=== PATIENT | male | born 1940 | race Caucasian/White ===

== ENCOUNTER 2019-06-07 04:54 | Inpatient (IN) | payer BC, OTHER ==
[~2019-06-07] VITALS: Ht 175.3 cm; Wt 81.6 kg
--- NOTE | 2019-06-07 04:54 | NUR ---
PT CED ALS. TAKEN TO BED 6
--- NOTE | 2019-06-07 04:56 | NUR ---
Dr. Weaver examining patient.
[2019-06-07 05:00] VITALS: BP 94/52
[2019-06-07] MEDS ORDERED: NACL 0.9% 1,000 ML IV SCH ×2 (05:02→07:44)
[2019-06-07] MEDS ORDERED: ONDANSETRON 4 MG/2 ML VIAL IVP ONE (05:05)
[2019-06-07] MEDS ORDERED: MORPHINE SULFATE 2 MG/ML SYR IVP ONE (05:05)
[2019-06-07] MEDS ORDERED: DILTIAZEM 25 MG/5 ML VIAL IVP ONE ×2 (05:05→06:55)
[2019-06-07 05:28] LABS: BASOPHILS % (AUTO) 0.1 % (0.0-2.0); EOSINOPHILS # (AUTO) 0.1 K/uL (0-0.4); EOSINOPHILS % (AUTO) 0.5 % (0.0-4.0); HEMATOCRIT 42.9 % (36-52); HEMOGLOBIN 13.8 g/dL (12.0-18.0); LYMPHOCYTES # (AUTO) 0.6 K/uL (2.0-11.5); MEAN CORPUSCULAR HEMOGLOBIN 29 pg (27-31); MEAN CORPUSCULAR HGB CONC 32 g/dL (33-37); MEAN CORPUSCULAR VOLUME 89.9 fL (80-94); MONOCYTES # (AUTO) 0.5 K/uL (0.8-1.0); NEUTROPHILS # (AUTO) 8.7 K/uL (1.8-7.7); PLATELET COUNT (AUTO) 154 K/uL (140-450); RED BLOOD CELL COUNT(AUTO) 4.77 MIL/uL (4.20-6.10); WHITE BLOOD COUNT (AUTO) 9.8 K/uL (4.8-10.8)
--- NOTE | 2019-06-07 05:33 | NUR ---
X-Ray at bedside.
--- NOTE | 2019-06-07 05:35 | NUR ---
PT BIBA FROM TRAILER C/O ABD PAIN X8 HRS. 10/10 SHARP, CRAMPING PAIN. VOMITED 3X . DENIES N/D. NO BLOOD IN STOOL/VOMIT. BOWEL SOUNDS PRESENT X4 QUAD. DENIES CHEST PAIN. RR EVEN AND UNLABORED. PT LAYING IN BED. PT C/O ACHING NECK PAIN STARTED 30 MIN AGO. MEDHX: INSOMNIA ALLERGIES: DENIES
--- NOTE | 2019-06-07 05:35 | NUR ---
PT BEING TREATED FOR BED BUGS.
[2019-06-07 05:41] LABS: NEUTROPHILS % (AUTO) 88.4 % (42.2-75.2)
[2019-06-07 05:43] LABS: ALBUMIN 3.2 g/dL (3.4-5.0); ANION GAP 11.2 (8-16); ASPARTATE AMINOTRANSFERASE 22 U/L (15-37); CARBON DIOXIDE 27.8 mmol/L (21-32); CHLORIDE 106 mmol/L (98-107); CREATININE 1.3 mg/dL (0.7-1.3); GLUCOSE 134 mg/dL (74-106); SODIUM SERUM 141 mmol/L (136-145); TOTAL BILIRUBIN 0.5 mg/dL (0.0-1.0); UREA NITROGEN, BLOOD 18 mg/dL (7-18)
--- NOTE | 2019-06-07 05:47 | NUR ---
PT STATES HE IS UNABLE TO GIVE URINE AT THIS TIME. WILL TRY AFTER HE RECEIVES MORE FLUID.
[2019-06-07 05:53] LABS: PROTHROMBIN TIME 9.9 secs (10.8-13.4)
--- NOTE | 2019-06-07 05:58 | NUR ---
PT TAKEN TO CT
--- NOTE | 2019-06-07 05:58 | NUR ---
Tai toussaint in [facility] - 06/07/19 at 0558 by [email or web address] PT TAKEN TO CT VIA [facility]
--- NOTE | 2019-06-07 06:12 | NUR ---
PT RETURN FROM CT
--- NOTE | 2019-06-07 06:25 | NUR ---
PT PLACED ON 2L NC. O2 SAT 87 ON ROOM AIR
--- NOTE | 2019-06-07 06:34 | NUR ---
PT GIVEN URINAL, ATTEMPTING TO GIVE URINE.
--- NOTE | 2019-06-07 06:44 | NUR ---
PT UNABLE TO GIVE URINE
--- NOTE | 2019-06-07 07:04 | NUR ---
REPORT GIVEN TO KAVITHA MONTAGUE. PT STABLE AT THIS TIME.
--- NOTE | 2019-06-07 07:20 | NUR ---
PT REMOVED IV. NEW IV INSERTED. PT TOLERATED WELL. VSS. ALERT AND AWAKE
--- NOTE | 2019-06-07 07:28 | NUR ---
PT UNABLE TO GIVE URINE AT THIS TIME. REFUSED TO BE STRIAGHT CATH. PT REQUESTING WATER. EXPLAINED TO PT THAT WITH A RULE OUT SBO VS APPY, PT CAN NOT HAVE WATER.
[2019-06-07] MEDS ORDERED: TRAZ-343 PO (07:36)
[2019-06-07] MEDS ORDERED: MORPHINE SULFATE 2 MG/ML SYR IVP PRN (07:45)
[2019-06-07] MEDS ORDERED: KETOROLAC 15 MG/ML VIAL IVP PRN (07:45)
[2019-06-07] MEDS ORDERED: ACETAMINOPHEN 325 MG TAB PO PRN (07:45)
[2019-06-07] MEDS ORDERED: ONDANSETRON 4 MG/2 ML VIAL IM/IVP PRN (07:45)
[2019-06-07] MEDS ORDERED: DOCUSATE SODIUM 100 MG GELCAP PO PRN (07:45)
--- NOTE | 2019-06-07 07:45 | NUR ---
Patient will be admitted to care of GREGORIO. Admited to TELE BUT WENT TO ICU BED 5 DUE TO TELE OVERFLOW. Will go to roomICU BED 5. Belongings list completed. Report to SAFIA PLUMMER.
--- NOTE | 2019-06-07 07:50 | NUR ---
RECEIVED PT FROM ER. PT IS AAOX4, ABLE TO TRANSFER HIMSELF FROM RNEY TO BED. CC: ABD PAIN LAST NIGHT. HOWEVER, PT DENIES ANY PAIN AT THIS TIME. PT IS ON 2LPM. LUNG SOUNDS CLEAR. NO S/S OF RESPIRATORY DISTRESS. HR IRREGULAR,108 AND AFIB. SKIN NOT INTACT, RASHES ON BLE AND LEFT UPPER BACK. ALL PICS TAKEN. BOWELS ACTIVE, SOFT AND NON TENDER. ALL PULSES PALPABLE. NO EDEMA NOTED. ORIENTED PT TO CALL LIGHT AND ROOM ENVIRONMENT. CALL LIGHT IN REACH. SAFETY PRECAUTIONS IN PLACE.
[2019-06-07 08:00] VITALS: BP 124/86
[2019-06-07] MEDS ORDERED: traZODone 50 MG TAB PO PRN (08:05)
[2019-06-07] MEDS ORDERED: MELATONIN 3 MG TAB PO PRN (08:05)
[2019-06-07] MEDS ORDERED: NEOMYCIN/POLYMYXIN/BACITRACIN OIN 15 GM TUBE TP SCH (09:00)
[2019-06-07] MEDS ORDERED: DILTIAZEM 60 MG TAB PO SCH ×2 (09:24→13:00)
[2019-06-07] MEDS ORDERED: APIXABAN 2.5 MG TAB PO SCH ×2 (09:26→21:00)
[2019-06-07 09:51] LABS: MAGNESIUM 1.6 mg/dL (1.8-2.4); PHOSPHORUS 3.5 mg/dL (2.5-4.9)
[2019-06-07 10:00] VITALS: BP 100/80
[2019-06-07 10:12] LABS: CHOL/HDL RATIO 4.2 (1-4.5)
[2019-06-07] MEDS ORDERED: MAG SULF 2000 MG/WATER PREMIX 50 ML IV SCH (10:34)
[2019-06-07 10:38] LABS: THYROID STIMULATING HORMONE 1.09 uIU/mL (0.34-3.74)
--- NOTE | 2019-06-07 11:50 | NUR ---
DR PALACIOS WAS HERE AND TALKED TO PT.
[2019-06-07 12:00] VITALS: BP 104/61
--- NOTE | 2019-06-07 12:55 | NUR ---
PT HAD LUNCH. RESTING IN BED. PT PULLED OUT THE IV ON HIS LEFT HAND, BLEEDING NOTED. GAUZE APPLIED AND BLEEDING CONTROLLED. PT TOLD ME HE IS READY GO HOME. ASKED HOW PT FEELS, PT SAID HE FEELS ADEQUATE. TOLD PT HE NEEDS TO WAIT FOR DR TO DISCHARGE HIM OR HE WILL NEED TO SIGN AMA. MADE DR POLO AWARE PT WISHES TO LEAVE THE HOSP.
[2019-06-07 13:03] VITALS: BP 99/65
--- NOTE | 2019-06-07 13:15 | NUR ---
PT WANTS TO LEAVE, PT SAID HE HAD THINGS TO DO AT HOME AND HE HAS DR APPOINTMENT TOMORROW WITH DR POOL AT [facility]. MADE DR POLO AWARE THAT PT WANTS TO LEAVE AMA. DR POLO CAME AND TALKED TO PT. DC'D THE IV ON LEFT FA. TIP INTACT. AND PRESSURE APPLIED. MADE PT AWARE OF HIS DIAGNOSIS AND THE MEDICATIONS HE HAS BEEN GIVEN. PT WROTE THEM DOWN. AND RECOMMENDED HIM TO LET HIS PCP KNOW AT TOMORROW'S APPT. PT DRESSED HIMSELF AND LEFT AMA WITH SECURITY.
== END 2019-06-07 13:15 | disposition left against medical advice (07) | DRG 309 ==
LOC: MED 04:54 → MIC 07:28
PROVIDERS: ADMIT General Practice; ATTEND General Practice
DX: I48.91 Unspecified atrial fibrillation (principal); J98.11 Atelectasis; E44.1 Mild protein-calorie malnutrition; K57.30 Diverticulosis of large intestine without perforation or abscess without bleeding; K52.9 Noninfective gastroenteritis and colitis, unspecified; G47.00 Insomnia, unspecified; M47.819 Spondylosis without myelopathy or radiculopathy, site unspecified; Z53.21 Procedure and treatment not carried out due to patient leaving prior to being seen by health care provider; E83.42 Hypomagnesemia; Z68.26 Body mass index [BMI] 26.0-26.9, adult
CPT/HCPCS: 36415; 71045; 80053; 82150; 83036; 83605; 83615; 83690; 83735; 83880; 84100; 84443; 84484; 85025; 85610; 85730; 87040; 87081; 93005; 96374; 96375; 99285; J2270; J2405; J3475; J3490; J7030; Q0092